=== PATIENT | male | born 1945 | race Caucasian/White ===

== ENCOUNTER 2019-10-20 07:42 | Emergency (ER) | payer MEDICARE ==
[~2019-10-20] VITALS: Ht 177.8 cm; Wt 81.7 kg
--- NOTE | 2019-10-20 08:10 | NUR ---
LAB AT BEDSIDE
[2019-10-20] MEDS ORDERED: PLEASE ENTER HEIGHT AND WEIGHT MC SCH (08:30)
[2019-10-20] MEDS ORDERED: ONDANSETRON 2MG/ML, 2ML IVPush ONE (08:30)
[2019-10-20] MEDS ORDERED: SODIUM CHLORIDE 0.9% 1,000ML IVBOLUS ONE ×2 (08:30→13:00)
[2019-10-20] MEDS ORDERED: SODIUM CHLORIDE FLUSH 10ML SYR IVF ONE (08:30)
[2019-10-20] MEDS ORDERED: PLEASE ENTER ALLERGIES MC SCH (08:30)
[2019-10-20 08:44] LABS: BASOPHILS # (AUTO) 0.02 x10^3/uL (0-0.1); BASOPHILS % (AUTO) 0 % (0-1); EOSINOPHILS # (AUTO) 0.03 x10^3/uL (0-0.4); EOSINOPHILS % (AUTO) 0 % (1-7); LYMPHOCYTES # (AUTO) 0.92 x10^3/uL (1-3.4); LYMPHOCYTES % (AUTO) 11 % (22-44); MD NO; MEAN CORPUSCULAR HEMOGLOBIN 30.1 pg (27.5-34.5); MEAN CORPUSCULAR HGB CONC 32.4 g/dL (33.2-36.2); MEAN CORPUSCULAR VOLUME 92.9 fL (81-97); MONOCYTES # (AUTO) 0.46 x10^3/uL (0.2-0.8); MONOCYTES % (AUTO) 5 % (2-9); NEUTROPHILS # (AUTO) 6.97 x10^3/uL (1.8-6.8); NEUTROPHILS % (AUTO) 83 % (42-75); PLATELET COUNT 248 x10^3/uL (130-400); RED BLOOD COUNT 4.59 x10^6/uL (4.38-5.82); RED CELL DISTRIBUTION WIDTH 14.9 % (9.4-14.8)
[2019-10-20 08:57] LABS: ALANINE AMINOTRANSFERASE 19 U/L (12-78); ALBUMIN 3.3 g/dL (3.4-5.0); ANION GAP 7 mmol/L (5-15); CALCIUM 9.7 mg/dL (8.5-10.1); CHLORIDE 109 mmol/L (98-107)
[2019-10-20 09:00] LABS: ALKALINE PHOSPHATASE 146 U/L (45-117); BILIRUBIN,TOTAL 0.8 mg/dL (0.2-1.0); TOTAL PROTEIN 7.2 g/dL (6.4-8.2)
[2019-10-20] MEDS ORDERED: ONDANSETRON 2MG/ML, 2ML ONE (09:07)
[2019-10-20] MEDS ORDERED: MORPHINE SULFATE 4 MG/ML, 1ML ONE ×2 (09:07→10:53)
[2019-10-20] MEDS: MORPHINE SULFATE 4 MG/ML, 1ML IVPush PRN ×2 (09:10→10:57)
[2019-10-20] MEDS ORDERED: ASPI-496 PO (09:15)
[2019-10-20] MEDS ORDERED: FINA5TAB4 PO (09:16)
[2019-10-20] MEDS ORDERED: MULT-449 PO (09:16)
[2019-10-20] MEDS ORDERED: TAMS-11 PO (09:17)
[2019-10-20] MEDS ORDERED: BACL-19 PO ×2 (09:17→09:24)
[2019-10-20] MEDS ORDERED: BACI1TAB2 PO (09:18)
[2019-10-20] MEDS ORDERED: SIMV10TA18 PO (09:19)
[2019-10-20] MEDS ORDERED: LOPE2TAB28 PO ×2 (09:20→09:21)
[2019-10-20] MEDS ORDERED: TRAM50TA2 PO (09:22)
[2019-10-20] MEDS ORDERED: ONDA4TAB7 PO (09:22)
[2019-10-20] MEDS ORDERED: UBID300C PO (09:22)
[2019-10-20] MEDS ORDERED: ACET325T26 PO (09:24)
[2019-10-20] MEDS ORDERED: SENN-204 PO (09:25)
[2019-10-20] MEDS ORDERED: MELA5TAB14 PO (09:26)
[2019-10-20] MEDS ORDERED: OMNIPAQUE 350 MG/ML, 100ML BOTTLE ONE (09:45)
--- NOTE | 2019-10-20 11:02 | NUR ---
MEDICATED PER EMAR FOR CONTINUED PAIN-THEN STRAIGHT CATHED FOR 800ML OF DARK URINE. SAMPLE TO LAB FOR ANALYSIS. TO PERFORM ENEMA SHORTLY
[2019-10-20 11:03] VITALS: BP 130/55
--- NOTE | 2019-10-20 11:19 | NUR ---
LARGE AMOUNT OF STOOL RETURNED WITH ENEMA-PROVIDER MADE AWARE
[2019-10-20 11:40] LABS: MICROSCOPIC INDICATED
--- NOTE | 2019-10-20 12:35 | NUR ---
NS BOLUS STARTED ORDERED.
--- NOTE | 2019-10-20 13:14 | NUR ---
1L BOLUS COMPLETE. PATIENT WITH NO SENSATION TO VOID-PROVIDER MADE AWARE
--- NOTE | 2019-10-20 13:30 | NUR ---
PATIENT ABLE TO VOID-[facility] SET UP
== END 2019-10-20 14:23 | disposition home or self-care (01) ==
LOC: ED 09:13
DX: N30.00 Acute cystitis without hematuria (principal); L89.151 Pressure ulcer of sacral region, stage 1; K56.41 Fecal impaction; E11.9 Type 2 diabetes mellitus without complications
CPT/HCPCS: 36415; 74177; 80053; 81001; 85025; 87086; 96361; 96374; 96375; 96376; 99285; J2270; J2405; J7030; Q9967

== ENCOUNTER 2019-12-08 13:11 | Emergency (ER) | payer MEDICARE ==
[~2019-12-08] VITALS: Ht 177.8 cm; Wt 76.0 kg
[~2019-12-08 13:11] MED LIST: ACET325T26 PO; ASPI-496 PO; BACI1TAB2 PO; BACL-19 PO; FINA5TAB4 PO; LOPE2TAB28 PO; MELA5TAB14 PO; MULT-449 PO; ONDA4TAB7 PO; SENN-204 PO; SIMV10TA18 PO; TAMS-11 PO; TRAM50TA2 PO; UBID300C PO
--- NOTE | 2019-12-08 13:14 | NUR ---
INITIAL PT CONTACT. PT KYAWAlexandre FROM HIS [facility] C/O CONSTIPATION X6 DAYS, ABD PAIN BEGINING YESTERDAY, "IT COMES IN WAVES". PT STATES "I WAS GIVEN A LOT OF OTC MEDS FOR CONSTIPATION AND NO RELIEF". PT SUPINE ON GURNEY, CONTINUOUS PULSE OX IN PLACE. VSS, NAD. FALL PRECAUTIONS IN PLACE, CALL LIGHT WITHIN REACH.
--- NOTE | 2019-12-08 13:25 | NUR ---
ERP AT BEDSIDE, BEDSIDE FAST EXAM PERFORMED. MINIMAL URINE SEEN IN BLADDER. "NOT ENOUGH URINE SEEN IN BLADDER TO OBTAIN URINE SAMPLE AT THIS TIME"
[2019-12-08] MEDS ORDERED: KETOROLAC 30 MG/1 ML IVPush ONE (13:30)
[2019-12-08] MEDS ORDERED: ONDANSETRON 2MG/ML, 2ML IVPush ONE (13:30)
[2019-12-08] MEDS ORDERED: SODIUM CHLORIDE 0.9% 1,000ML IVBOLUS ONE (13:30)
[2019-12-08] MEDS ORDERED: SODIUM CHLORIDE FLUSH 10ML SYR IVF ONE (13:30)
[2019-12-08] MEDS ORDERED: KETOROLAC 30 MG/1 ML ONE (13:38)
[2019-12-08] MEDS ORDERED: ONDANSETRON 2MG/ML, 2ML ONE (13:38)
[2019-12-08 13:47] LABS: BASOPHILS % (AUTO) 0 % (0-1); EOSINOPHILS % (AUTO) 1 % (1-7); LYMPHOCYTES % (AUTO) 9 % (22-44); MEAN CORPUSCULAR HEMOGLOBIN 30.5 pg (27.5-34.5); MEAN CORPUSCULAR HGB CONC 33.1 g/dL (33.2-36.2); MEAN PLATELET VOLUME 7.8 fL (7.4-10.4); MONOCYTES % (AUTO) 6 % (2-9); NEUTROPHILS % (AUTO) 83 % (42-75); PLATELET COUNT 285 x10^3/uL (130-400); RED BLOOD COUNT 4.58 x10^6/uL (4.38-5.82); RED CELL DISTRIBUTION WIDTH 14.5 % (9.4-14.8)
[2019-12-08 13:49] LABS: MD NO
[2019-12-08 13:58] LABS: CHLORIDE 109 mmol/L (98-107)
[2019-12-08] MEDS ORDERED: PLEASE ENTER HEIGHT AND WEIGHT MC SCH (14:00)
--- NOTE | 2019-12-08 14:04 | NUR ---
PT SUPINE ON GUBROCK, QUETA, VSS. PT REPOSITIONED FOR COMFORT. PT STATES "I FEEL A LITTLE BETTER AFTER THAT MEDICATION". PT DENIES ANY NEEDS AT THIS TIME. FALL PRECAUTIONS IN PLACE. CALL LIGHT WITHIN REACH.
[2019-12-08 14:10] LABS: ALANINE AMINOTRANSFERASE 19 U/L (12-78); ALBUMIN 3.2 g/dL (3.4-5.0); ALKALINE PHOSPHATASE 110 U/L (45-117); ANION GAP 9 mmol/L (5-15); BILIRUBIN,TOTAL 0.5 mg/dL (0.2-1.0); CALCIUM 9.3 mg/dL (8.5-10.1); CREATININE 0.72 mg/dL (0.7-1.3); TOTAL PROTEIN 6.7 g/dL (6.4-8.2)
--- NOTE | 2019-12-08 14:30 | NUR ---
PT TO CT
[2019-12-08] MEDS ORDERED: OMNIPAQUE 350 MG/ML, 100ML BOTTLE ONE (14:49)
[2019-12-08] MEDS ORDERED: CEFD300C37 PO (15:07)
[2019-12-08] MEDS ORDERED: METR-90 PO (15:07)
--- NOTE | 2019-12-08 16:00 | NUR ---
PT SITTING UPRIGHT ON GURNEY. PT REPORTS IMPROVED PAIN FOLLOWING ENEMA. LINEN CHANGE PERFORMED. PT DENIES ANY NEEDS AT THIS TIME. CALL LIGHT IN REACH, FALL PRECAUTIONS IN REACH. WILL CONTINUE TO MONITOR.
--- NOTE | 2019-12-08 16:30 | NUR ---
PT REQ 2-PERSON ASSIST TO CHANGE DISPOSABLE PADS WITH SKIN CARE TO BUTTOCKS AFTER SMALL AMT FECAL INCONT FOLLOWING [facility].
--- NOTE | 2019-12-08 16:37 | NUR ---
[facility] called. ETA [id number]
[2019-12-08 16:49] LABS: MICROSCOPIC AUTO
--- NOTE | 2019-12-08 17:03 | NUR ---
PT SITTING ON GURNEY WITH EYES CLOSED. NAD NOTED, VSS. PT STATES "THAT ENEMA REALLY DID THE TRICK". PT DENIES ANY NEEDS AT THIS TIME. CALL LIGHT WITHIN REACH, FALL PRECAUTIONS IN PLACE. WILL CONTINUE TO MONITOR.
--- NOTE | 2019-12-08 17:10 | NUR ---
PT SUPINE ON QUETA MARTEL. PT STATES, "I FEEL SO MUCH BETTER, PAIN IS BASICALLY GONE". UPON REPEAT VITALS BP 80'S OVER 60'S, PT ASYMPTOMATIC AT THIS TIME. NOTIFIED, NO NEW ORDERS AT THIS TIME. WILL CONTINUE TO MONITOR. CALL LIGHT IN REACH, FALL PRECAUTIONS IN PLACE.
[2019-12-08 17:51] VITALS: BP 99/53
== END 2019-12-08 18:05 | disposition home or self-care (01) ==
LOC: ED 17:30
DX: K59.00 Constipation, unspecified (principal); R10.84 Generalized abdominal pain; R11.0 Nausea; Z87.891 Personal history of nicotine dependence
CPT/HCPCS: 36415; 74177; 80053; 81001; 85025; 87086; 96361; 96374; 96375; 99285; J1885; J2405; J7030; Q9967

== ENCOUNTER 2019-12-09 04:11 | Emergency (ER) | payer MEDICARE ==
[~2019-12-09] VITALS: Ht 177.8 cm; Wt 74.0 kg
[~2019-12-09 04:11] MED LIST changes: +CEFD300C37 PO; +METR-90 PO
--- NOTE | 2019-12-09 04:18 | NUR ---
PT COMING FROM [facility]. HE STATES HE NORMALLY HAS DIARRHEA HOWEVER HAS BEEN CONSTIPATED RECENTLY. HE WAS SEEN HERE YESTERDAY FOR SAME S/SX OF ABD CRAMPING, N/V, AND D/C'D AFTER ENEMA. PT STATES HIS SYMPOTOMS "GOT BETTER AND THEN GOT WORSE AGAIN." PT HAS A HX OF POLIO AND IS BEDBOUND AT BASELINE. RESPIRATIONS EVEN AND UNLABROED. PT IMMEDIATELY CONNECTED TO BP AND O2 MONITORS. PT'S FIRST AND SOLE REQUEST AT THIS TIME WAS FOR A PILLOW FOR CHRONIC NECK PAIN. PILLOW PROVIDED. CALL LIGTH IN REACH, BEDRAILS UP. PT GIVEN HEAT PACK IN ROUTE FOR PAIN MANAGEMENT. EMISIS BAG IN REACH.
[2019-12-09] MEDS ORDERED: SODIUM CHLORIDE FLUSH 10ML SYR IVF ONE (05:00)
[2019-12-09] MEDS ORDERED: ONDANSETRON 2MG/ML, 2ML IVPush ONE (05:00)
[2019-12-09] MEDS ORDERED: MORPHINE SULFATE 4 MG/ML, 1ML IVPush PRN (05:00)
[2019-12-09] MEDS ORDERED: ONDANSETRON 2MG/ML, 2ML ONE (05:04)
[2019-12-09] MEDS ORDERED: MORPHINE SULFATE 4 MG/ML, 1ML ONE ×2 (05:04→06:32)
--- NOTE | 2019-12-09 05:17 | NUR ---
PT TO IMAGING.
[2019-12-09 05:21] LABS: BASOPHILS % (AUTO) 0 % (0-1); EOSINOPHILS % (AUTO) 0 % (1-7); LYMPHOCYTES % (AUTO) 6 % (22-44); MEAN CORPUSCULAR HEMOGLOBIN 30.2 pg (27.5-34.5); MEAN CORPUSCULAR HGB CONC 32.7 g/dL (33.2-36.2); MEAN PLATELET VOLUME 7.7 fL (7.4-10.4); MONOCYTES % (AUTO) 6 % (2-9); NEUTROPHILS % (AUTO) 87 % (42-75); PLATELET COUNT 319 x10^3/uL (130-400); RED BLOOD COUNT 4.79 x10^6/uL (4.38-5.82); RED CELL DISTRIBUTION WIDTH 14.6 % (9.4-14.8)
[2019-12-09 05:27] LABS: ALBUMIN 3.4 g/dL (3.4-5.0); ANION GAP 10 mmol/L (5-15); CALCIUM 9.5 mg/dL (8.5-10.1); CHLORIDE 106 mmol/L (98-107)
[2019-12-09 05:30] LABS: ALANINE AMINOTRANSFERASE 21 U/L (12-78); ALKALINE PHOSPHATASE 116 U/L (45-117); BILIRUBIN,TOTAL 0.8 mg/dL (0.2-1.0); CREATININE 0.85 mg/dL (0.7-1.3); TOTAL PROTEIN 7.3 g/dL (6.4-8.2)
[2019-12-09 05:37] LABS: MD NO
[2019-12-09] MEDS ORDERED: DIAZEPAM 5 MG/ML, 2ML IV ONE (06:30)
--- NOTE | 2019-12-09 06:51 | NUR ---
REPORT RECEIVED FROM JEROME MCCOLLUM. ASSUMING PRIMARY CARE OF PT. PT LYING IN BED ATTEMPTING TO HAVE A BM. RN TO CHECK ON PT TO SEE IF HE WAS ABLE TO HAVE A BM.
--- NOTE | 2019-12-09 06:54 | NUR ---
REPORT TO JEROME LYNNE. PT CURRENTLY HAVING BM. ALL NEEDS MET AT THIS TIME.
--- NOTE | 2019-12-09 06:58 | NUR ---
PT LYING IN BED STILL ATTEMPTING TO HAVE A BM. PT STATED "DOCTOR SAID I WAS CURRENTLY HAVING A SMALL BM RIGHT NOW." RN TO LET PT FINISH THEN CHECK FOR BM. VSS. NO NEEDS. RN TO CONTINUE TO MONITOR.
--- NOTE | 2019-12-09 07:19 | NUR ---
Note stevie in EDM - 12/09/19 at 0721 by SHEEBA PT BEING DC HOME IN A STABLE CONDITION. DC INSTRUCTIONS DISCUSSED WITH PT. PT VERBALIZED UNDERSTANDING. PRESCRIPTION SCRIPT PROVIDED TO PT. NO FURTHER QUESTIONS OR CONCERNS EXPRESSED. RN TO WHEEL PT OUT OF ED.
--- NOTE | 2019-12-09 07:37 | NUR ---
RN DISCUSSED WITH PA THAT PT IS REQUESTING ENEMA. OKAY BY PA TO ADMINISTER ENEMA.
--- NOTE | 2019-12-09 08:29 | NUR ---
PT HAD LARGE BM AFTER ENEMA. RN CLEANED PT UP. RN TO REPORT TO ERMD.
--- NOTE | 2019-12-09 08:37 | NUR ---
OKAY BY ERMD TO GIVE PT FLUIDS. FLUIDS PROVIDED TO PT. PT TBDC. RN INFORMED THROUGHOUT PT WILL NEED TRANSPORT BACK TO RETIREMENT. THROUGHPUT RN TO SET UP TRANSPORT.
--- NOTE | 2019-12-09 09:13 | NUR ---
PT RESTING COMFORTABLY. UPDATED ON POC. NO NEEDS AT THIS TIME. RN TO CONTINUE TO MONITOR.
[2019-12-09 10:26] VITALS: BP 104/51
--- NOTE | 2019-12-09 10:26 | NUR ---
PT SLEEPING ON GURNEY. THROUGHPUT STILL WORKING ON RIDE BACK TO RETIREMENT.
--- NOTE | 2019-12-09 11:24 | NUR ---
PT BEING DISCHARGED BACK TO PRISON IN A STABLE CONDITION. PIV WAS REMOVED WITH TIP INTACT. DC INSTRUCTIONS WERE DISCUSSED WITH PT. PT VERBALIZED UNDERSTANDING. PT HAD ANOTHER BM. RN CLEANED UP PT AND PUT DEPENDS ON PT PER REQUEST. AWAITING ARRIVAL OF [facility].
== END 2019-12-09 12:01 | disposition home or self-care (01) ==
LOC: ED 04:40
DX: K56.0 Paralytic ileus (principal); K56.41 Fecal impaction; R11.2 Nausea with vomiting, unspecified; R10.84 Generalized abdominal pain
CPT/HCPCS: 36415; 74021; 80053; 83690; 85025; 96374; 96375; 99285; J2270; J2405